=== PATIENT | female | born 1940 | race Caucasian/White ===

== ENCOUNTER → 2017-03-15 | Outpatient (CLI) | payer OTHER ==
[~2017-03-15] MED LIST: AMLODIPINE BES2.5 MG PO; ASACOL HD800 MG PO; ASPIRIN PO; ATENOLOL PO; CELEXA PO; COLAZAL750 MG PO; DICYCLOMINE HCL20 MG; ESTRADIOL0.5 MG PO; LIPITOR PO; LOW DOSE ASPIRI81 M2 PO; MAGNESIUM400 MG PO; MEDI-MECLIZINE25 M1 PO; MULTI VITAMIN1 EACH PO; MULTIVITAMIN1 UDCAP PO; NAPROSYN250 M1 PO; PERCOCET5/325 PO; PHARMACY; PREMARIN PO; PRILOSEC20 MG PO; PRINIVIL40 MG PO; REMERON PO; TENORETIC PO; TYLENOL #3 PO; VITAMIN D31000 UNI1 PO; WELCHOL625 MG PO; ZOCOR PO; [UNRECOGNIZED DRUG - OTHER]
--- NOTE | ~2017-03-15 | MY11 ---
[facility] A Service of [facility] RADIOLOGY TEXT RESULTS PATIENT: FERNANDA MORRIS LOCATION: [facility] : 44 UNIT #: [id number] AGE: [address]: TIM CIFUENTES MD SEX: F ORDER DR: [id number] [address] [address] [id number] MR#: [id number] #: [id number] NAME: FERNANDA MORRIS : 1940 SEX: F STUDY DATE/TIME: 03/14/2017 14:20 UNIT: [facility] ROOM: STUDY DESCRIPTION: MY Mammogram Screening Dig Ron Attending Physician: Tim Cifuentes M.D. Referring Physician: Tim Cifuentes M.D. Ordering Physician: Tim Cifuentes M.D. Primary Care Physician: Tim Cifuentes M.D. MEDICAL IMAGING REPORT This report is preliminary unless electronic signature is present. EXAM Digital screening mammogram, 03/14/17 [facility] HISTORY 76-year-old woman positive family history, cousin. Annual screening. Comparison mammograms date to 08/05/2005 with most recent 08/27/2014 Digital imaging of each breast was completed utilizing a two-view examination of each breast in craniocaudal and mediolateral-oblique projections. Review and interpretation of digital mammograms include a second review in conjunction with FDA-approved CAD device. There is a normal parenchymal presentation bilaterally consistent with the patient's age. There are no breast masses imaged and no parenchymal asymmetry is visualized. There are no suspicious microcalcifications and I see no focal architectural disturbance. IMPRESSION Negative screening digital mammogram. One-year followup recommended. Addendum: Breast parenchyma is fatty replaced. Pacemaker noted left MLO projection. Patients over the age of 40 are entered into a reminder system with target due date for the next mammogram. A result letter will also be sent to the patient. BIRADS: 1 Negative [facility] A Service of [facility] RADIOLOGY TEXT RESULTS PATIENT: FERNANDA MORRIS LOCATION: [facility] #: [id number] : 44 UNIT #: [id number] AGE: [address]: TIM CIFUENTES MD SEX: F ORDER DR: Dictated by... Christopher Moura M.D. THIS IS AN ELECTRONICALLY VERIFIED REPORT Christopher Moura M.D. at 03/15/2017 1:04 PM CALLIE/wolfgang TD: 03/15/2017 08:11 JOB #: [id number] MEDICAL IMAGING REPORT Page 1 of 1
== END | disposition home or self-care (01) ==
LOC: SMAM 03-14 14:00
DX: Z12.31 Encounter for screening mammogram for malignant neoplasm of breast (principal); Z80.3 Family history of malignant neoplasm of breast
CPT/HCPCS: G0202